=== PATIENT | female | born 1965 | race Caucasian/White ===

== ENCOUNTER → 2017-05-30 | Outpatient (CLI) | payer MEDICAID, OTHER | LOC: CIMAGING 10:32 | PROVIDERS: ATTEND Family Medicine | DX: Z12.31 Encounter for screening mammogram for malignant neoplasm of breast (principal) | CPT/HCPCS: G0202 ==

== ENCOUNTER → 2017-12-25 | Outpatient (CLI) | payer OTHER | LOC: CIMAGING 12:16 | PROVIDERS: ATTEND Family Medicine | DX: M17.0 Bilateral primary osteoarthritis of knee (principal); M79.672 Pain in left foot; M25.572 Pain in left ankle and joints of left foot; M54.5 Low back pain | CPT/HCPCS: 73521-PO; 73562-PO; 73610-PO; 73630-PO ==

== ENCOUNTER → 2018-06-14 | Outpatient (CLI) | payer OTHER | LOC: CIMAGING 11:05 | PROVIDERS: ATTEND Family Medicine | DX: Z12.31 Encounter for screening mammogram for malignant neoplasm of breast (principal) ==

== ENCOUNTER 2018-11-16 11:38 | Emergency (ER) | payer OTHER ==
[2018-11-16 11:56] VITALS: BP 139/87
--- NOTE | 2018-11-16 12:13 | EDPHY ---
H & P Time Seen by Provider: 11/16/18 12:00 HPI/ROS: CHIEF COMPLAINT: Right great toe pain History by patient HISTORY OF PRESENT ILLNESS: 52-year-old woman presents complaining of pain, bruising and drainage from her right great toenail after a can of foot cream fell on the 2 days ago. She noted it turned black and blue and was quite painful but she squeezed it and blood extruded from small wound at the base of the toenail. That seemed to relieve some of the pain but it continues to drain intermittently. She has been cleaning it with hydrogen peroxide, isopropyl alcohol, Betadine and putting Neosporin on it. She says it is painful to bear weight, but she is ambulatory. She has chronic pain for which she enjoys taking Epsom salt baths but was worried about soaking her toe in the bath prompting her to seek medical attention today. REVIEW OF SYSTEMS: As in HPI, and all other systems reviewed and are negative Smoking Status: Never smoked Physical Exam: General Appearance: Alert and no distress. Head: Normocephalic, atraumatic Eyes: Pupils equal and round no injection. Extraocular movements are intact. Musculoskeletal: Neck is supple and nontender. Extremities: Right great toe with 50% subungual hematoma and healing superficial laceration at the base of the toenail, full range of motion of the toe, mild tenderness palpation over the nail and dorsal surface and joints. No purulence or surrounding erythema. Skin: No rashes or lesions except as described above. Constitutional: Initial Vital Signs Temperature (C) 37.0 C 11/16/18 11:50 Heart Rate 97 11/16/18 11:50 Respiratory Rate 18 11/16/18 11:50 Blood Pressure 139/87 H 11/16/18 11:50 O2 Sat (%) 96 11/16/18 11:50 O2 Delivery Mode Room Air Allergies/Adverse Reactions: No Known Allergies Allergy (Unverified 11/16/18 11:49) Home Medications: Medication Instructions Recorded Vits,Supplements,Fish Oil,Hot 01/18/10 Flash Meds Gabapentin 11/16/18 Ms Contin 11/16/18 Oxycodone HCl 11/16/18 MDM/Departure - MDM ED Course/Re-evaluation: 52-year-old woman presents with subungual hematoma on the right which has spontaneously drained due to associated laceration at the base of the nail. Patient was given reassurance, we discussed home care. There is no evidence of infection. 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 Patient was given postop shoe for comfort. She is discharged home stable condition. - Depart Disposition: Home, Routine, Self-Care Clinical Impression: Contusion of toe with damage to nail Qualifiers: Encounter type: initial encounter Toe: great toe Laterality: right Qualified Code(s): S90.211A - Contusion of right great toe with damage to nail, initial encounter Condition: Good Instructions: Subungual Hematoma (ED), Foot Contusion (ED) Additional Instructions: You were seen by Dr. Alma Rosa Martin today. You have a contusion of your toe and in injury to the nail bed. There is no sign of infection in your toe today. It is safe to take baths and to soak it in water. You may continue to put Neosporin on it. It may continue to drain a little. It is likely the nail will fall off and/or grow back abnormally. You may put as much weight on her toe as you can tolerate. Use postop shoe for support and comfort as needed. You may fatou tape her toe if this provides extra comfort. I recommend avoiding hydrogen peroxide and isopropyl alcohol on wounds. Please follow up with your regular doctor, Dr. Pino if you continue to have any problems. Return for any worsening or new concerns. Referrals: SANJAY CLAYTON [Primary Care Provider] - As per Instructions
== END 2018-11-16 12:23 | disposition home or self-care (01) ==
LOC: CED 11:38
DX: S90.211A Contusion of right great toe with damage to nail, initial encounter (principal); W20.8XXA Other cause of strike by thrown, projected or falling object, initial encounter; Y92.9 Unspecified place or not applicable; Y93.9 Activity, unspecified; Y99.9 Unspecified external cause status
CPT/HCPCS: 99282; L4386